=== PATIENT | male | born 1940 | race Caucasian/White ===

== ENCOUNTER 2020-06-24 15:33 | Emergency (ER) | payer MEDICARE ==
[2020-06-24] MEDS ORDERED: HYDROmorphone 0.5 MG/0.5 ML Syringe IM ONE (15:54)
[2020-06-24] MEDS ORDERED: Acetaminophen/oxyCODONE 325-5 MG Tab PO ONE (16:58)
--- NOTE | 2020-06-24 17:04 | EDM.PDOC ---
ED HPI GENERAL MEDICAL PROBLEM - General Chief Complaint: Upper Extremity Injury/Pain Stated Complaint: FALL LEFT SHOULDER/ARM PAIN Time Seen by Provider: 06/24/20 16:59 Source of Information: Reports: Patient History Limitations: Reports: No Limitations - History of Present Illness INITIAL COMMENTS - FREE TEXT/NARRATIVE: pt fell and landed on her left shoulder She is now having sever pain and swelling in the shoulder. Onset: Today, Sudden Duration: Hour(s): Location: Reports: Upper Extremity, Left Quality: Reports: Ache Severity: Moderate Associated Symptoms: Reports: No Other Symptoms Left Shoulder Pain Score (Numeric/FACES): 10 - Related Data Allergies Allergy/AdvReac Type Severity Reaction Status Date / Time nitrofurantoin Allergy Rash Verified 06/24/20 16:01 [From Macrobid] Sulfa (Sulfonamide Allergy Rash Verified 06/24/20 16:01 Antibiotics) Home Meds: Home Meds ALPRAZolam [Alprazolam] 0.5 mg PO ASDIRECTED PRN 06/24/20 [History] Calcium Carbonate/Vitamin D3 [Calcium 500+D Tablet Chew] 1 tab PO DAILY 06/24/20 [History] Ciprofloxacin HCl [Cipro] 250 mg PO ASDIRECTED PRN 06/24/20 [History] Multivitamin with Minerals [Multiple Vitamin] 1 tab PO DAILY 06/24/20 [History] Sertraline [Zoloft] 100 mg PO DAILY 06/24/20 [History] Past Medical History HEENT History: Reports: Impaired Vision Genitourinary History: Reports: UTI, Recurrent Oncologic (Cancer) History: Reports: Breast - Infectious Disease History Infectious Disease History: Reports: Chicken Pox, Measles, Mumps - Past Surgical History HEENT Surgical History: Reports: Cataract Surgery GI Surgical History: Reports: Appendectomy, Cholecystectomy Social & Family History - Tobacco Use Smoking Status *Q: Never Smoker Second Hand Smoke Exposure: No - Caffeine Use Caffeine Use: Reports: None - Alcohol Use Days Per Week of Alcohol Use: 7 Number of Drinks Per Day: 1 Total Drinks Per Week: 7 - Recreational Drug Use Recreational Drug Use: No Review of Systems - Review of Systems Review Of Systems: See Below Constitutional: Reports: No Symptoms Eyes: Reports: No Symptoms Ears: Reports: No Symptoms Nose: Reports: No Symptoms Mouth/Throat: Reports: No Symptoms Respiratory: Reports: No Symptoms Cardiovascular: Reports: No Symptoms GI/Abdominal: Reports: No Symptoms Genitourinary: Reports: No Symptoms Musculoskeletal: Reports: Other (pain in the left shoulder , there is obvious swelling in the shoulder area. ) Skin: Reports: No Symptoms Neurological: Reports: No Symptoms, Other (pt lost her balance when she fell but did not pass out. ) Psychiatric: Reports: Anxiety ED EXAM, GENERAL - Physical Exam Exam: See Below Free Text/Narrative:: pt arrived with pain in the rt should. There is obvious swelling and deformity of the rt shoulder. Exam Limited By: No Limitations General Appearance: Alert, Anxious, Severe Distress Ears: Normal TMs Nose: Normal Inspection Throat/Mouth: Normal Inspection Head: Atraumatic Neck: Normal Inspection Respiratory/Chest: No Respiratory Distress Cardiovascular: Regular Rate, Rhythm GI/Abdominal: Soft, Non-Tender (Male) Exam: Deferred Rectal (Males) Exam: Deferred Back Exam: Normal Inspection Extremities: Arm Pain, Other (pt has swelling and deformity of the left humerus. ) Neurological: Alert, Oriented, Normal Cognition Psychiatric: Normal Affect Course - Vital Signs Last Recorded V/S: Last Vital Signs Temp 35.9 C L 06/24/20 16:11 Pulse 63 06/24/20 16:11 Resp 14 06/24/20 16:11 BP 154/75 H 06/24/20 16:11 Pulse Ox 100 06/24/20 16:11 - Orders/Labs/Meds Orders: Active Orders 24 hr Category Date Time Status Shoulder Comp Lt [CR] Stat Exams 06/24/20 15:55 Taken Meds: Medications Discontinued Medications Generic Name Dose Route Start Last Admin Trade Name Freq PRN Reason Stop Dose Admin Hydromorphone HCl 0.5 mg 06/24/20 15:54 06/24/20 16:17 Dilaudid IM 06/24/20 15:55 0.5 mg ONETIME ONE Administration Oxycodone/Acetaminophen 1 tab 06/24/20 16:58 Percocet 325-5 Mg PO 06/24/20 16:59 ONETIME ONE - Re-Assessments/Exams Free Text/Narrative Re-Assessment/Exam: 06/24/20 17:23 xray of the shoulder shows a fracture of the proximal humerus. with slight displacement. Pt did not have other injuries. Departure - Departure Time of Disposition: 17:00 Disposition: Home, Self-Care 01 Condition: Fair Clinical Impression: Fracture of proximal humerus - Discharge Information Referrals: PCP,None [Primary Care Provider] - Forms: ED Department Discharge Care Plan Goals: shoulder imbolizer, cool pack to the area. percocet 5/325 q6h prn for pain. with the use of the percocet constipation can occur, use prunes or miralax to prevent constipation. Pt will return to [place] and set up an appt with a Orthopedist the first part of the week Sepsis Event Note (ED) - Evaluation Sepsis Screening Result: No Definite Risk - Focused Exam Vital Signs: Vital Signs Temp Pulse Resp BP Pulse Ox 06/24/20 16:11 35.9 C L 63 14 154/75 H 100 06/24/20 15:51 35.9 C L 63 14 154/75 H 100 - My Orders Last 24 Hours: My Active Orders 06/24/20 15:55 Shoulder Comp Lt [CR] Stat - Assessment/Plan Last 24 Hours: My Active Orders 06/24/20 15:55 Shoulder Comp Lt [CR] Stat
--- NOTE | 2020-06-25 08:56 | CR ---
Shoulder Comp Lt CLINICAL HISTORY: Fall FINDINGS: Patient is a transverse minimally displaced fracture of the proximal humerus. Glenohumeral joint appears intact AC joint is intact Impression: Fracture proximal humerus
== END 2020-06-24 17:37 | disposition home or self-care (01) ==
LOC: JP.ED 15:33
DX: S42.202A Unspecified fracture of upper end of left humerus, initial encounter for closed fracture (principal); Z88.1 Allergy status to other antibiotic agents; Z88.2 Allergy status to sulfonamides; Z79.899 Other long term (current) drug therapy; W19.XXXA Unspecified fall, initial encounter
CPT/HCPCS: 73030; 96372; 99283; A9270; J1170